=== PATIENT | male | born 1990 | race Caucasian/White ===

== ENCOUNTER 2020-09-03 08:29 | Outpatient (REF) | payer BC, SELFPAY | END 2020-09-03 08:30 | disposition home or self-care (01) | LOC: HO.LAB 08:29 | PROVIDERS: PCP Internal Medicine; Visit Provider Internal Medicine | DX: Z20.822 Contact with and (suspected) exposure to COVID-19 (principal) | CPT/HCPCS: 36415; C9803; U0003 ==

== ENCOUNTER 2021-10-09 11:27 | Emergency (ER) | payer BC, SELFPAY ==
--- NOTE | ~2021-10-09 | US_ITS ---
EXAMINATION: US SCROTUM CLINICAL INFORMATION: Left testicle pain. COMPARISON: None TECHNIQUE: A sonogram of the scrotum was performed assessing saleh-scale appearance and color Doppler flow. Spectral Doppler analysis of the arterial and venous flow were performed in the testes bilaterally. FINDINGS: RIGHT: Right testicle measures 4.5 x 2.5 x 3 cm, volume 18 mL. No focal testicular parenchymal lesions are visualized. Spectral Doppler analysis of the arterial and venous flow is normal in the right testis. Right epididymal head is normal in size. There is a 4 mm epididymal head cyst. No right hydrocele or varicocele is seen. Right epididymal Doppler flow is normal. LEFT: Left testicle measures 4.5 x 2.1 x 3.3 cm, volume 17 mL. No focal testicular parenchymal lesions are visualized. Spectral Doppler analysis of the arterial and venous flow is normal in the left testis. Left epididymal head is normal in size. There is a 2 mm epididymal head cyst. No left hydrocele or varicocele is seen. Left epididymal Doppler flow is normal. US/US scrotum IMPRESSION: Small epididymal head cysts otherwise unremarkable exam.
--- NOTE | ~2021-10-09 | US_ITS ---
EXAMINATION: US SCROTUM CLINICAL INFORMATION: Left testicle pain. COMPARISON: None TECHNIQUE: A sonogram of the scrotum was performed assessing saleh-scale appearance and color Doppler flow. Spectral Doppler analysis of the arterial and venous flow were performed in the testes bilaterally. FINDINGS: RIGHT: Right testicle measures 4.5 x 2.5 x 3 cm, volume 18 mL. No focal testicular parenchymal lesions are visualized. Spectral Doppler analysis of the arterial and venous flow is normal in the right testis. Right epididymal head is normal in size. There is a 4 mm epididymal head cyst. No right hydrocele or varicocele is seen. Right epididymal Doppler flow is normal. LEFT: Left testicle measures 4.5 x 2.1 x 3.3 cm, volume 17 mL. No focal testicular parenchymal lesions are visualized. Spectral Doppler analysis of the arterial and venous flow is normal in the left testis. Left epididymal head is normal in size. There is a 2 mm epididymal head cyst. No left hydrocele or varicocele is seen. Left epididymal Doppler flow is normal. US/US scrotum doppler IMPRESSION: Small epididymal head cysts otherwise unremarkable exam.
[2021-10-09 11:37] VITALS: BP 144/91; PULSE 70; RESP 18; TEMP 36.7; O2SAT 99; BMI 24.9
--- NOTE | 2021-10-09 12:00 | ED.MALEGU ---
HPI - Male Genitourinary General Chief complaint: Urogenital-Male Stated complaint: testicle pain Time Seen by Provider: 10/09/21 11:39 Source: patient Mode of arrival: ambulatory Limitations: no limitations History of Present Illness HPI Narrative: 31 y/o male presenting for 2 weeks of worsening left testicular pain. He was seen by his doctor last week, had a negative UA at that time. He called his doctor today with worsening pain and he ordered 10 days of levaquin and a testicular ultrasound. He reports the pain was more constant today and more severe so he came to the ER for evaluation. He reports the pain is a fullness in his left groin MD Complaint: testicle pain Onset (ago): week(s) (2) Duration: progressively worsening Location: left testicle and left inguinal region Radiation: penis Severity: moderate Severity scale (1-10): 6 Quality: aching and dull Relieving factors: none Exacerbating factors: palpation Associated symptoms: Reports denies other symptoms Related Data Sexually active: No Allergies Allergy/AdvReac Type Severity Reaction Status Date / Time No Known Allergies Allergy Unverified 05/01/20 16:29 [No Known Allergies*] Review of Systems Review of Systems: Constitutional: No Fever, No Chills Cardiovascular: No Chest Pain, No SOB Gastrointestinal: No Nausea, No Vomiting, No Diarrhea, No abdominal Pain Genitourinary: No Dysuria, No Urinary Frequency, No Hematuria, No urethral discharge, No genital lesions Skin: No Skin Lesions, No rash Neuro: No Numbness, No Dizziness, No Headache Psych: +Anxiety/Panic, No Depression Heme/Lymph: No Bruising, No Lymphadenopathy PMFSH Past Medical History Surgical History (Updated 10/09/21 @ 11:38 by Jillian Cruz) S/P appy Social History Social History Advance Directives: No Advance Directives Information Provided: Yes Physical Exam Vital Signs: Vital Signs: Last Vital Signs Temp 98.0 F 10/09/21 11:37 Pulse 70 10/09/21 11:37 Resp 18 10/09/21 11:37 BP 144/91 H 10/09/21 11:37 Pulse Ox 99 10/09/21 11:37 BMI result Body Mass Index 24.9 Appearance: Alert. Oriented X3. No acute distress. HEENT: normal external inspection Neck: Normal inspection CVS: Normal heart rate and rhythm. Pulses normal. Respiratory: No respiratory distress. Breath sounds normal. Abdomen: Soft with mild left pelvic/suprapubic tenderness, no rebound or guarding. normal +BS x4 Gentialia: normal external inspection, circumsized penis, no lesions. testes descended with tenderness of the left testicle, no palpable mass. no skin changes. No palpable inguinal hernia Skin: Skin warm and dry. Normal skin color. Normal skin turgor. No rashes. Extremities: normal inspection x4 Neuro: Oriented X 3. grossly normal, nonfocal Course Course Course Narrative: 31-year-old male presenting to the ER with 2 weeks of worsening left-sided testicular pain and left inguinal pain. Exam is benign aside from some left-sided testicular tenderness without any palpable mass. STD testing and testicular ultrasound are ordered. Reevaluation(s) Reevaluation #1: Urinalysis is negative. GC chlamydia sent, patient is not concerned about STDs. Scrotal ultrasound is showing very small epididymal head cysts, unlikely to be the source of his pain. No evidence of testicular torsion or epididymitis. His doctor had already prescribed him levofloxacin 10 days, to be started today. He will empirically start taking this. He will follow-up with his primary care doctor early next week. Will also plan to refer to urology for further evaluation. Instructed to come back to the ER if he has acutely worsening pain as torsion is still a possibility. Stable for discharge home with outpatient follow-up. MDM - Male Genitourinary Differential Diagnosis Differential diagnosis: Likely urinary tract infection, urethritis, epididymitis, genital herpes simplex, prostatitis, acute retention of urine and inguinal hernia Medical Records Attestation: I reviewed the patient's medical records. Lab Data Attestation: I reviewed the patient's lab results. Labs: Lab Results 10/09/21 Range/Units 12:13 Urine Color YELLOW Urine Appearance CLEAR Urine pH 6.0 (5.0-8.0) Ur Specific Patterson 1.020 (1.005-1.025) Urine Protein NEG (NEG-TRACE) MG/DL Urine Glucose (UA) NEG (NEG) MG/DL Urine Ketones NEG (NEG) MG/DL Urine Blood NEG (NEG) Urine Nitrite NEG (NEG) Ur Leukocyte Esterase NEG (NEG) Critical Care Time Critical Care Time Critical Care Time: No Discharge Plan Discharge Clinical Impression: Left testicular pain Patient Disposition: Home, Self-Care Instructions: Testicle Pain (ED) Additional Instructions: Your testicular ultrasound showed Small epididymal head cysts otherwise unremarkable exam. Your urinalysis was normal. Recommend trial of the antibiotic prescribed by your doctor. Also recommend follow up with Urology for further evaluation if symptoms persist. If you have worsening pain or develop any new or worsening symptoms come back to the ER for further evaluation. Referrals: Ankit Villalobos MD [Physician] - 1 week (left testicular pain, UA normal, US normal) Interventions: ED Discharge Assessment Last Done: 10/09/21 13:37
[2021-10-09 12:20] LABS: Appearance Urine CLEAR; Color Urine YELLOW; Glucose Urine UA NEG (NEG); Leukocyte Esterase Urine NEG (NEG); Nitrite Urine NEG (NEG); Urine Blood NEG (NEG); Urine Ketones NEG (NEG); Urine Protein NEG (NEG-TRACE)
[2021-10-09 14:08] LABS: CT PCR NOT DETECTED (Not Detect.); NG PCR NOT DETECTED (Not Detect.)
== END 2021-10-09 13:37 | disposition home or self-care (01) ==
PROVIDERS: Physician Assistant; Emergency Provider Emergency Medicine; PCP Internal Medicine
DX: N50.3 Cyst of epididymis (principal); N50.812 Left testicular pain; R10.2 Pelvic and perineal pain; Z20.822 Contact with and (suspected) exposure to COVID-19; Z79.899 Other long term (current) drug therapy
CPT/HCPCS: 76870; 81003; 87491; 87591; 93975; 99283; 99284

== ENCOUNTER 2022-03-23 11:23 | Outpatient (REF) | payer BC, SELFPAY ==
[2022-03-23 13:15] LABS: CT PCR DETECTED (Not Detect.); NG PCR NOT DETECTED (Not Detect.)
== END 2022-03-23 11:24 | disposition home or self-care (01) ==
LOC: HO.LNP 11:23
PROVIDERS: Visit Provider Internal Medicine
DX: Z11.3 Encounter for screening for infections with a predominantly sexual mode of transmission (principal)
CPT/HCPCS: 87491; 87591

== ENCOUNTER 2025-02-20 07:59 | Outpatient (REF) | payer BC, SELFPAY ==
[2025-02-20 11:23] LABS: HBsAGNum1 0.38 S/CO (0.00-0.99); HIV Num 1 0.05 S/CO (0.00-0.99); Hepatitis B Surface Antigen Negative (Negative); Syphilis Screen Nonreactive (Nonreactive); ~HepC Num1 0.11 S/CO (0.00-0.79); ~Hepatitis C Antibody Nonreactive (Nonreactive)
[2025-02-20 12:44] LABS: CT PCR Urine NOT DETECTED (Not Detect.); NG PCR Urine NOT DETECTED (Not Detect.)
== END 2025-02-20 08:00 | disposition home or self-care (01) ==
LOC: HO.HMGCLDS 07:59
PROVIDERS: PCP Internal Medicine; Visit Provider Physician Assistant
DX: Z11.3 Encounter for screening for infections with a predominantly sexual mode of transmission (principal); Z11.4 Encounter for screening for human immunodeficiency virus [HIV]; Z11.59 Encounter for screening for other viral diseases
CPT/HCPCS: 36415; 86780; 86803; 87340; 87389; 87491; 87591

== ENCOUNTER 2025-02-20 07:59 | Outpatient (AMB) | payer BC, SELFPAY ==
--- OUTSIDE RECORDS SUMMARY | 2025-02-20 08:01 | XMS_ITS | Clinical Summary ---
Author Organization [facility] Address [address] [place] [address] Care Team Providers Care Asphalt Mixer Name Role Phone Flako Beck Primary Care Provider [phone] Allergies No known active allergies Medications No known medications Social History Tobacco Use Types Packs/Day Years Used Date Smoking Tobacco: Never Smokeless Tobacco: Never Tobacco Cessation:Counseling Given: Not Answered Alcohol Use Standard Drinks/Week Comments Defer 0 (1 standard drink = 0.6 oz pur e alcohol) Sex and Gender Information Value Date Recorded Sex Assigned at Male 11/04/2024 10:17 AM EDT Legal Sex Male 10:14 AM EDT Gender Identity Not on file Sexual Orientation Not on file Last Filed Vital Signs Vital Sign Reading Time Taken Comments Blood Pressure 147/86 11/04/2024 11:53 AM EDT Pulse 57 11/04/2024 11:53 AM EDT Temperature 36.3 C (97.3 F) 11/04/2024 11:53 AM EDT Respiratory Rate - - Oxygen Saturation 99% 11/04/2024 11:53 AM EDT Inhaled Oxygen Concentration - - Weight - - Height - - Body Mass Index - - Plan of Treatment Health Maintenance Due Date Last Done Comments HIV Screening 1991 Pneumococcal Vaccine: Pediat federico (0-5 Years) and At-Risk Patients (6-50 Years) (2 of 2 - PCV) 07/25/2021 07/25/2020 COVID-19 Vaccine ( - 2023-2 5 season) 2024 12/03/2020, 11/12/2020 DTaP,Tdap,and Td Vaccines (9 - Td or Tdap) 07/03/2024 07/03/2014, 07/03/2014, 07/24/2008, Additional history exists Alcohol/Substance Use Screening 08/15/2024 Depression Screening and Follow-Up 08/15/2024 Social Drivers of Health Mam[place] ual Screening 08/15/2024 Influenza Vaccine (#1) 2025 3, 08/04/2022, 05/03/2020, Additional history exists RSV Vaccine (60+ years old a nd patients) (1 - 1-dose 75+ series) 2066 Varicella Vaccines Completed 07/24/2008, 07/05/2003 Hepatitis B Vaccines Completed 07/03/2014, 04/14/1996, 08/14/1995, Additional history exists Hepatitis C Screening Completed 05/10/2023 Insurance [facility] PPO/EPO Care Teams Asphalt Mixer Relationship Specialty Start Date End Date Flako Beck [address] [place] [id number] PCP - General Internal Medicine 11/04/24
[2025-02-20 08:14] VITALS: BP 124/80; PULSE 68; TEMP 36.7; O2SAT 98; BMI 25.7
--- NOTE | 2025-02-20 08:14 | AM.OFFWIN_ITS ---
Intake Vital Signs 02/20/25 08:14 Height 6 ft 4 in Weight 211 lb BMI 25.7 BP 124/80 Blood Pressure Location Lt brachial Position Sitting Pulse 68 Pulse Source Pulse Oximeter Temp 98.1 F Temp Source Oral Pulse Oximetry (%) 98 Oxygen Delivery Method Room Air Intake Visit Reasons: EP STI testing Intake Note: presents for STI testing Patient Tobacco Use Status: Never used Tobacco Allergies No Known Allergies (No Known Allergies*) Allergy (Verified 02/20/25 08:18) Medication List - Last Reconciled 02/20/25 by Abi Merino PA-C budesonide-formoterol 80-4.5 mcg/actuation 2 puffs PO HPI HPI Comments History of Present Illness Details History - The patient is a 34-year-old male pres enting with a request for routine STD screening. - The patient reports being sexually act deric with multiple partners and seeks screening as a preventative measure. - He denies any symptoms such as abnorma l discharge or fever but mentions generalized itching, which he attributes to a new laundry detergent. Physical Exam General: Cooperative, healthy appearing, comfortable, no acute distress and well developed Orientation: Patient oriented x3 Limitations: No limitations Head: Normal to inspection Ears: Hearing grossly normal bilaterally Nose: Normal External nose present Face and sinus: Normal facial exam Mouth: normal, moist oral mucosa Eyes: Appearance normal, both eyes and all related structures Neck: Normal visual inspection and Yes full ROM Respiratory: Normal respiratory effort and able to speak in complete sentences. Skin: no rashes or lesions noted Neuro: Patient oriented x3 Extremities: moving all extremities normally PFSH Surgical History S/P appy Social History Patient Tobacco Use Status: Never used Tobacco Physical Exam Vital Signs: Last Vital Signs Temp 98.1 F 02/20/25 08:14 Pulse 68 02/20/25 08:14 BP 124/80 02/20/25 08:14 Pulse Ox 98 02/20/25 08:14 Oxygen Delivery Method Room Air 02/20/25 08:14 BMI result Body Mass Index 25.7 Assessment & Plan Assessment & Plan (1) Screening examination for sexually transmitted disease: Code(s): Z11.3 - Encounter for screening for infections with a predominantly sexual mode of transmission Plan: Patient was informed and verbally consented to the use of an ambient scribe for clinic note documentation during this visit 1. Routine Std Screening - Conducted urine test for gonorrhea and chlamydia. - Ordered blood tests for syphilis, HIV, and hepatitis B and C. - Results will be communicated once all tests are completed. Orders: Orders Hepatitis B Surface Antigen Today Z11.3 - Encounter for screening for infections with a predominantly sexual mode of transmission CT NG by PCR Urine Today Z11.3 - Encounter for screening for infections with a predominantly sexual mode of transmission Syphilis Screen Today Z11.3 - Encounter for screening for infections with a predominantly sexual mode of transmission HIV Ab/Ag Today Z11.3 - Encounter for screening for infections with a predominantly sexual mode of transmission Hepatitis C Antibody Today Z11.3 - Encounter for screening for infections with a predominantly sexual mode of transmission Coding Level of Care Code New Pt Level 3 (88457) Diagnoses Screening examination for sexually transmitted disease Z11.3
== END 2025-02-20 08:34 | disposition home or self-care (01) ==
PROVIDERS: PCP Internal Medicine; Visit Provider Physician Assistant
DX: Z11.3 Encounter for screening for infections with a predominantly sexual mode of transmission (principal)

== ENCOUNTER 2025-06-20 12:40 | Outpatient (AMB) | payer BC, SELFPAY ==
--- NOTE | 2025-06-20 12:47 | MHC.PC.OV ---
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 The patient declined all vaccinations. Health Maintenance - The patient is here for a physical exam. - The patient declined all vaccinations. 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 - Exercise: Reports being fairly active and enjoys the outdoors. Review of Systems - Cardiovascular: Denies chest pain. - Respiratory: Denies shortness of breath. - Gastrointestinal: Denies abdominal pain, blood in stool, constipation, or diarrhea. - Psychiatric: Denies suicidal or homicidal ideations. Physical Exam General: Cooperative, healthy appearing, comfortable, no acute distress and well developed Orientation: Patient oriented x3 Limitations: No limitations Head: Normal to inspection Ears: Hearing grossly normal bilaterally Nose: Normal external nose present Face and sinus: Normal facial exam Eyes: Appearance normal, both eyes and all related structures Neck: Normal visual inspection and Yes full ROM Respiratory: Normal respiratory effort and able to speak in complete sentences. Clear to auscultation bilaterally Cardiovascular: Regular rate and rhythm. Normal S1 and S2 GI: Normal to inspection. Soft to palpation and nontender : Testicles without masses/lesions and no hernias appreciated Skin: No rashes or lesions noted Neuro: Patient oriented x3 Extremities: Normal to inspection Results Plan 1. Encounter For General Adult Medical Examination The patient is a new patient presenting for a physical examination. The physical examination was benign. 2. Underimmunization Status The patient has declined all recommended vaccinations. Discussion Notes I noted that the patient is a new patient to me and presented for a physical exam. I informed the patient that the findings of his physical exam were completely benign. The patient declined all vaccinations at this time. Patient Instructions [facility] Surgical History S/P appy Family History Father Hypertension Mother Hypertension Social History Patient Tobacco Use Status: Never used Tobacco e-Cigarette/Vaping Use: Never Used service: No Current occupational status: employed Cognitive needs: No Hearing needs: No Vision needs: No Questionnaire PHQ-9 Over the last 2 weeks, how often have you been bothered by any of the following problems? 1. Little interest or pleasure in doing things: not at all 2. Feeling down, depressed, or hopeless: not at all 3. Trouble falling or staying asleep, or sleeping too much: not at all 4. Feeling tired or having little energy: not at all 5. Poor appetite or overeating: not at all 6. Feeling bad about yourself - or that you are a failure or have let yourself or your family down: not at all 7. Trouble concentrating on things, such as reading the newspaper or watching television: not at all 8. Moving or speaking so slowly that other people could have noticed. Or the opposite - being so fidgety or restless that you have been moving around a lot more than usual: not at all 9. Thoughts that you would be better off or of hurting yourself in some way: not at all Total score: 0 Depression Screening Interpretation: Negative Depression Screening Done: Yes 83869 - PHQ-9 Billing: Yes Source: Developed by Drs. Ravi Berumen, Lucy Houston, Jer Cabello and colleagues, with an educational grace from [employer]. Thrive Questionnaire Date Thrive assessed: 06/20/25 I am a: Patient What is your living situation today?: I have a steady place to live Within the past 12 months, did the food you bought not last and you didn't have the money to get more?: Never true Within the past 12 months, did you worry whether your food would run out before you got money to buy more?: Never true Do you have trouble paying for medicines?: No Do you have trouble getting transportation to medical appointments?: No Do you have trouble paying your heating and electricity bill?: No Do you have trouble taking care of your child, family member or friend?: No Do you have trouble with day-to-day activities such as bathing, preparing meals, shopping, managing finances, etc.?: No Are you currently unemployed and looking for a job?: No Are you interested in more education?: Yes Please select the resources that you would like help with: None Currently or been in a relationship where the following occur: No concerns reported THRIVE Score: 0 AUDIT C Alcohol Use Questionnaire (AUDIT-C) 1. How often do you have a drink containing alcohol?: 2-4 times a month 2. How many drinks containing alcohol do you have on a typical day when you are drinking?: 1 or 2 3. How often do you have six or more drinks on one occasion?: Less than monthly Total Score: 3 Score Reviewed/Action Taken: Yes LUCIO-7 AMB Questionnaire LUCIO-7 Date LUCIO - 7 assessed: 06/20/25 Feeling nervous, anxious, or on edge: 0 = Not at all Not being able to stop or control worryin = Not at all Worrying too much about different things: 0 = Not at all Trouble relaxin = Not at all Being so restless that it is hard to sit still: 0 = Not at all Becoming easily annoyed or irritable: 0 = Not at all Feeling afraid as if something awful might happen: 0 = Not at all Total LUCIO-7 score (0-4 normal; 5-9 mild; 10-14 moderate; 15-21 severe): 0 Source: Developed by Drs. Ravi Berumen, Lucy Houston, Jer Cabello and colleagues, with an educational grace from [employer]. LUCIO-7 Assessment Billing LUCIO-7 Assessment Tool: LUCIO-7 Assessment 70758 Physical exam (Primary Care) Vital Signs: Last Vital Signs Temp 98.2 F 06/20/25 12:48 Pulse 63 06/20/25 12:48 Resp 16 06/20/25 12:48 BP 122/76 06/20/25 12:48 Pulse Ox 99 06/20/25 12:48 Oxygen Delivery Method Room Air 06/20/25 12:48 BMI result Body Mass Index 26.0 Tobacco/Smoking Status: Tobacco use Status Tobacco use date assessed 06/20/25 06/20/25 12:57 Patient Tobacco Use Status Never used Tobacco 06/20/25 12:57 e-Cigarette/Vaping Use Never Used 06/20/25 12:57 PHQ-9: PHQ-9 Score PHQ-9: Total score 0 06/20/25 12:57 Depression Screening Interpretation: Negative Thrive Assessment: Date of Thrive Assessment Date Thrive assessed 06/20/25 06/20/25 12:57 Currently or been in a relationship where the following occur: No concerns reported Coding Level of Care Code Est Pt Prev Care 18-39y(14212) Diagnoses Physical exam Z00. Additional Codes LUCIO-7 Assessment Billing - LUCIO-7 Assessment Tool: LUCIO-7 Assessment 66309 ([id number]) PHQ-9 - 11216 - PHQ-9 Billing: Yes ([id number]) Assessment & Plan Assessment & Plan (1) Physical exam: Code(s): Z00.00 - Encounter for general adult medical examination without abnormal findings Category: Medical Plan . Orders: Orders Complete Blood Count Auto Diff Today Z00.00 - Encounter for general adult medical examination without abnormal findings TSH reflex Free T4 Today Z00.00 - Encounter for general adult medical examination without abnormal findings UA CC w/rflx Micro + Cult Today Z00.00 - Encounter for general adult medical examination without abnormal findings Lipid Panel Today Z00.00 - Encounter for general adult medical examination without abnormal findings Comprehensive Paterson. Panel Fast Today Z00.00 - Encounter for general adult medical examination without abnormal findings
[2025-06-20 12:48] VITALS: BP 122/76; PULSE 63; RESP 16; TEMP 36.8; O2SAT 99; BMI 26.0
--- OUTSIDE RECORDS SUMMARY | 2025-06-20 15:30 | XMS_ITS | Encounter Summary ---
Author Organization [facility] Address [address] [place] [address] Phone Care Team Providers Care Vrt Mechanic Name Role Phone Candy Long MD Primary Care Provider [phone] Encounter Details Date Type Department Care Team (Late st Contact Info) Description 08/25/2011 Documentation EM Family Medicine [address] [place] [address] Family Medicine, Physician [address] [place], [place] [phone] Social History Tobacco Use Types Packs/Day Years Used Date Smoking Tobacco: Never Assessed Sex and Gender Information Value Date Recorded Sex Assigned at Not on file Legal Sex Male 4:53 PM EDT Gender Identity Not on file Sexual Orientation Not on file documented as of this encounter Plan of Treatment Not on file documented as of this encounter Visit Diagnoses Not on filedocumented in this encounter Care Teams Vrt Mechanic Relationship Specialty Start Date End Date Candy Long MD [address] [place] [address] [place] [address] PCP - General 03/25/17 10/07/22 documented as of this encounter
--- OUTSIDE RECORDS SUMMARY | 2025-06-20 15:30 | XMS_ITS | Encounter Summary ---
Author Organization [facility] Address [address] [place] [phone] Phone Care Team Providers Care Obstetrician Gynecologist Name Role Phone Candy Long MD Primary Care Provider [phone] Encounter Details Date Type Department Care Team (Late st Contact Info) Description 05/23/2012 Documentation EM Family Medicine [address] [place] [address] Family Medicine, Physician [address] [place], [place] [phone] Social History Tobacco Use Types Packs/Day Years [...] on filedocumented in this encounter Care Teams Obstetrician Gynecologist Relationship Specialty Start Date End Date Candy Long MD [address] [place] [address] [place] [address] PCP - General 03/25/17 10/07/22 documented as of this encounter
--- OUTSIDE RECORDS SUMMARY | 2025-06-20 15:30 | XMS_ITS | Encounter Summary ---
Author Organization [facility] Address [address] [place] [address] Phone Care Team Providers Care Lodging Manager Name Role Phone Candy Long MD Primary Care Provider [phone] Encounter Details Date Type Department Care Team (Late st Contact Info) Description 03/31/2017 Conversion Encounter [facility] [place] [address] [place] [address] Social History Tobacco Use Types Packs/Day Years Used Date Smoking Tobacco: Every Day Comments:Current every day s moker Sex and Gender Information Value Date Recorded Sex Assigned at Not on file Legal Sex Male 4:53 PM EDT Gender Identity Not on file Sexual Orientation Not on file documented as of this encounter Plan of Treatment Not on file documented as of this encounter Visit Diagnoses Not on filedocumented in this encounter Care Teams Lodging Manager Relationship Specialty Start Date End Date Candy Long MD [address] [place] [address] PCP - General 03/25/17 10/07/22 documented as of this encounter
--- OUTSIDE RECORDS SUMMARY | 2025-06-20 15:30 | XMS_ITS | Clinical Summary ---
Author Organization [facility] Address [address] [place] [address] Phone Care Team Providers Care Coin Counter And Wrapper Name Role Phone Unknown, Unknown Primary Care Provider Noé Womack MD Unavailable Allergies No known active allergies Medications PROAIR HFA 90 mcg/actuation inhaler Inhale 90 mcg into the lungs every 4 (four) hours as needed. 2 puffs. 2 09/04/2018 Active budesonide-formot valentina (SYMBICORT) 80-4.5 mcg/actuation inhaler Inhale 1 puff into the lungs daily. 10.2 Inhaler 12 07/25/2020 Active therapeutic multivitamin tablet Take 1 tablet by mouth daily. Active meclizine (ANTIVERT) 25 mg tabletIndications :Benign paroxysmal positional vertigo, unspecified laterality Take 1 tablet (25 mg total) by mouth 3 (three) times a day as needed. 15 tablet 1 01/17/2023 Active Active Problems Problem Noted Date Diagnosed Date Pelvic floor dysfunction 05/10/2023 Benign paroxysmal positional vertigo 01/17/2023 Assessment & Plan (01/17/2023 4:56 PM EDT): With the absence of etiology for labyrinthitis most likely this is benign positional vertigo and certainly it is not behaving like a central vertigo. If the vertigo comes back would recommend setting up with [employer] here in [place] for Mannie maneuver to be taught officially. For now we will give him some meclizine if he is having issues at night while he is recovering. He did not feel it was necessary to go to physical therapy at this time since the problem seems to be on the way out. Sprain of interphalangeal joint of left little f bambi 01/08/2022 Assessment & Plan (01/08/2022 3:54 PM EDT): Capsule injury PIP left fifth digit suspected. Rule out fracture, obtain x-ray of left fifth digit, referral to [facility] orthopedics. Dysuria 10/06/2021 Assessment & Plan (10/06/2021 3:50 PM EST): Strong suspicion for a STD most likely chlamydia gonorrhea or trichomoniasis. Obtain urinalysis repeat with culture sensitivity. We note previously that the urine was not 100% clean. Also obtain urine for gonorrhea and chlamydia. Tomorrow we will base treatment on the lab results. If the gonorrhea or chlamydia comes back positive will open up a STD panel. History of 2019 novel coronavirus disease (COVID -19) 07/25/2020 Mild persistent asthma without complication 09/15 Elevated blood pressure read ing without diagnosis of hypertension 09/27/2017 Gastroesophageal reflux disease without esophagi tis 09/27/2017 Immunizations Immunization Administration Dates Next Due COVID-19 (Pre-06/06) Pfizer Vaccine, mRNA, PF 11/12/2020 DTP 03/14/1993, 2,1991,10/12 Dtap, 5 Pertussis Antigens 07/14/1996 HPV,quadrivalent 07/03/2014,06/22/2012 Hepatitis B 04/14/1996,08/14/1995,07/14/1995 Hepatitis B Adult 07/03/2014 Hib,PRP-T 10/12/1992, 2,1991,10/12 INFLUENZA, SPLIT VIRUS, TRIV ALENT W/ PRESERVATIVE IM 06/03/2014,07/24/2008 IPV 07/14/1996, 3,1991,10/12 Influenza Quadrivalent MDCK Preservative Free IM 05/28/2019 Influenza Quadrivalent Prese rvative Free IM 05/10/2023,08/04/2022,04/29/2020 Influenza Split (Incl. Purif ied Surface Antigen) 05/15/2012,08/12/2011 MMR 07/14/1995,10/12/1992 Meningococcal MCV4, unspecif ied Formulation 07/03/2014 Meningococcal MCV4P 03/20/2007 Pneumococcal polysaccharide PPSV23 07/25/2020 Td (adult),2 Lf Tetanus Toxo id, PF, Adsorbed 07/03/2014,09/09/2003 Tdap 07/03/2014,07/24/2008 Varicella 07/24/2008,07/05/2003 Family History Medical History Relation Comments COPD Father Diabetes Father Hypertension Father CV disease Maternal Grandfather Hypertension Mother Guillain-Fernandes syndrome Paternal Grandfather No Known Problems Sister Relation Status Comments Father Alive Maternal Grandfather Mother Alive Paternal Grandfather Sister Alive Social History Tobacco Use Types Packs/Day Years Used Date Smoking Tobacco: Never Smokeless Tobacco: Never Tobacco Cessation:Counseling Given: Not Answered Alcohol Use Standard Drinks/Week Comments Not Currently 0 (1 standard drink = 0.6 oz pur e alcohol) 3-4 drinks, monthly or less Child or Family Care Answer Date Record ed Do you have problems with on e of the following making it difficult for you to work, study, or receive health care? No 08/04/2022 Education Answer Date Recorded Are you interested in more education? Not on ad e 08/07/2024 Are you concerned about learning? Not on file 08/07/2024 No 08/07/2024 No 08/07/2024 Food Answer Date Recorded Within the past 6 months we worried whether our food would run out before we got money to buy more. Never True 08/04/2022 Within the past 6 months the food we bought just didn't last and we didn't have enough money to get more. Never True Residential Stability Answer Date Recor ded What is your housing situation today? I have maddy sing 08/04/2022 How many times have you move d in the past 12 months? Zero (I did not move) 08/04/2022 Paying for Meds Answer Date Recorded Do you have trouble paying for medicines? No 08/04/2022 Paying Utility Bills Answer Date Record ed Do you have trouble paying your heating or elect ricity bill? No 08/04/2022 Transportation Answer Date Recorded Has the lack of transportati on kept you from medical appointments or from getting medications? No 08/04/2022 Unemployment Answer Date Recorded Are you currently unemployed or working on a part-time or temporary basis, and looking for work? No 08/04/2022 Digital Access Answer Date Recorded No 01/10/2023 No 01/10/2023 Reliable internet access at home? Not on file 01/10/2023 Device with a working camera? Not on file Intimate Partner Violence Answer Date R ecorded Denied Basic Needs Not on file 08/04/2022 In the past 12 months have y ou been in a relationship with a person who hurts, threatens, or tries to control you? No 08/04/2022 Worried food would run out Not on file 08/04 In the past 12 months have y ou been in a relationship with a person who hurts, threatens, or tries to control you? No 08/04/2022 Sex and Gender Information Value Date Recorded Sex Assigned at Male 01/08/2022 3:09 PM EDT Legal Sex Male 9:00 PM EDT Gender Identity Male 01/08/2022 3:09 PM EDT Sexual Orientation Straight 01/08/2022 3: 09 PM EDT Last Filed Vital Signs Vital Sign Reading Time Taken Comments Blood Pressure 94/62 05/10/2023 10:30 AM EDT Pulse 70 05/10/2023 10:30 AM EDT Temperature 36.6 C (97.8 F) 05/10/2023 10:30 AM EDT Respiratory Rate 16 01/17/2023 4:22 PM EDT Oxygen Saturation 99% 05/10/2023 10:30 AM EDT Inhaled Oxygen Concentration - - Weight 89.5 kg (197 lb 6.4 oz) 05/10/2023 10:30 AM EDT Height 194 cm (6' 4.38 ) 05/10/2023 10:30 AM EDT Body Mass Index 23.79 05/10/2023 10:30 AM EDT Plan of Treatment Health Maintenance Due Date Last Done Comments PNEUMOCOCCAL VACCINES (0-49 years) (2 of 2 - PCV) 07/25/2021 07/25/2020 DEPRESSION SCREENING 08/04/2023 08/04/2022 Adult Td,Tdap Booster 07/03/2024 07/03/2014 , 07/03/2014, 07/24/2008, Additional history exists INFLUENZA VACCINE (#1) 2025 , 08/04/2022, 04/29/2020, Additional history exists COVID-19 VACCINE ( season) 2025 12/03/2020, 11/12/2020 HIB VACCINES Completed 10/12/1992, 01/15, 1991, Additional history exists MENINGOCOCCAL VACCINES (ACWY) Aged Out 07/03/2014, 03/20/2007 No longer eligibl e based on patient's age to complete this topic HEPATITIS C SCREENING Completed 05/10/2023 , 05/10/2023, 03/24/2017 HIV ONE-TIME SCREENING (18-65 YEARS) Completed 05/10/2023, 03/24/2017 SMOKING STATUS SCREENING (Once After 26 Yrs) Completed 05/10/2023 HEPATITIS A VACCINES Aged Out No long er eligible based on patient's age to complete this topic MENINGOCOCCAL VACCINES (B) Aged Out N o longer eligible based on patient's age to complete this topic Medical Devices Not on file Procedures Procedure Name Priority Date/Time Associated Diagnosis Comments HEPATITIS C ANTIBODY, QUALITATIVE Routine 05/10/2023 10:23 AM EDT Screen for STD (sexually transmitted disease) OUTSIDE HIV Routine 03/24/2017 from Last 3 Months or Most Recently Relevant to Health Maintenance Results * Hepatitis C antibody, qualitative (05/10/2023 10:23 AM EDT) HCV NON-REACTIV E NON-REACTI VE [facility] Blood 05/10/2023 10:2 3 AM EDT 05/10/2023 10:27 AM EDT us Kori Romero NP LAB BLOOD BKR ORDERABLES Final Result [address] [address] * OUTSIDE HIV TEST (03/24/2017) HIV - External Neg us Historical Provider LAB BLOOD ORDERABLES Maria Isabel l Result from Last 3 Months or Most Recently Relevant to Health Maintenance Insurance PPO EPO PPO EPO PPO EPO PPO EPO PPO EPO PPO EPO PPO EPO PPO EPO PPO EPO Care Teams Coin Counter And Wrapper Relationship Specialty Start Date End Date Unknown, Unknown, MD PCP - General 11/14/23 Noé Perera MD [address] [place] [address] [email or web address] Insurance Assigned Provider 11/19/23 Additional Source Comments The information contained in this document represents components of the legal health record. It is not the complete legal health record.[facility]
--- OUTSIDE RECORDS SUMMARY | 2025-06-20 15:30 | XMS_ITS | Encounter Summary ---
Author Organization [facility] Address [address] [place] [address] Phone Care Team Providers Care Bag Inspector Name Role Phone Candy Long MD Primary Care Provider [phone] Encounter Details Date Type Department Care Team (Late st Contact Info) Description 05/16/2012 Documentation EM Family [facility] [address] [place] [address] Family Medicine, Physician [address] [place], [place] [phone] Social History Tobacco Use Types Packs/Day Years [...] on filedocumented in this encounter Care Teams Bag Inspector Relationship Specialty Start Date End Date Candy Long MD [address] [place] [address] [place] [address] PCP - General 03/25/17 10/07/22 documented as of this encounter
--- OUTSIDE RECORDS SUMMARY | 2025-06-20 15:30 | XMS_ITS | Clinical Summary ---
Author Organization [facility] Address [address] [place] [address] Care Team Providers Care Net Maker Name Role Phone Flako Beck Primary Care Provider [phone] Allergies No known active allergies Medications No [...] (2 of 2 - PCV) 07/25/2021 07/25/2020 DTaP,Tdap,and Td Vaccines (9 - Td or Tdap) 07/03/2024 07/03/2014, 07/03/2014, 07/24/2008, Additional history exists Alcohol/Substance Use Screening 08/15/2024 Depression Screening and Follow-Up 08/15/2024 Social Drivers of Health Mamta ual Screening 08/15/2024 COVID-19 Vaccine (3 - 2024-2 6 season) 2025 12/03/2020, 11/12/2020 Influenza Vaccine (#1) 2025 , 08/04/2022, 05/03/2020, Additional history exists Varicella Vaccines Completed 07/24/2008, 07/05/2003 Hepatitis B Vaccines Completed 07/03/2014, 04/14/1996, 08/14/1995, Additional history exists Hepatitis C Screening Completed 05/10/2023 Insurance [facility] PPO/EPO Care Teams Net Maker Relationship Specialty Start Date End Date Flako Beck [address] [place] [address] PCP - General Internal Medicine 11/04/24
--- OUTSIDE RECORDS SUMMARY | 2025-06-20 15:30 | XMS_ITS | Encounter Summary ---
Author Organization [facility] Address [address] [place] [address] Phone Care Team Providers Care Hog Scraper Name Role Phone Candy Long MD Primary Care Provider Encounter Details Date Type Department Care Team (Late st Contact Info) Description 01/08/2014 Documentation EM Family Medicine [address] [place] [address] Family Medicine, Physician [address] [place], [place] [id number] Social History Tobacco Use Types Packs/Day Years [...] on filedocumented in this encounter Care Teams Hog Scraper Relationship Specialty Start Date End Date Candy Long MD [address] [place] [address] [place] [address] PCP - General 03/25/17 10/07/22 documented as of this encounter
--- OUTSIDE RECORDS SUMMARY | 2025-06-20 15:30 | XMS_ITS | Clinical Summary ---
Author Organization [facility] Address [address] [place] [address] Phone Care Team Providers Care Tool Grinder Operator Surface Name Role Phone Unavailable Primary Care Provider Unavailabl e Immunizations Immunization Administration Dates Next Due DTP 03/14/1993, 2,1991,10/12 DTaP 5 07/14/1996 HPV, Quadrivalent 06/22/2012 Hep B, ped/adol 04/14/1996,08/14/1995,07/14/1995 Hib (PRP-T) 10/12/1992, 2,1991,10/12 IPV 07/14/1996, 3,1991,10/12 Influenza Split 05/15/2012,08/12/2011 Influenza, injectable, trivalent 07/24/2008 MMR 07/14/1995,10/12/1992 Meningococcal Conj (Menactra) MCV4P 03/20/2007 Td (adult) (MBL), 2 Lf tetan us toxoid, PF, adsorbed 09/09/2003 Tdap 07/24/2008 Varicella 07/24/2008,07/05/2003 Family History Relation Name Status Comments Father Alive Father: Asthma / Hypothyroid Mother Alive Mother: HTN Sister Alive Sister: Alive a nd well Social History Tobacco Use Types Packs/Day Years Used Date Smoking Tobacco: Every Day Comments:Current every day s katie Sex and Gender Information Value Date Recorded Sex Assigned at Not on file Legal Sex Male 4:53 PM EDT Gender Identity Not on file Sexual Orientation Not on file Last Filed Vital Signs Vital Sign Reading Time Taken Comments Blood Pressure 128/79 05/11/2014 12:00 AM EDT Pulse 88 05/11/2014 12:00 AM EDT Temperature 36.7 C (98 F) 05/11/2014 12:00 AM EDT Respiratory Rate - - Oxygen Saturation 95% 10/29/2011 12:00 AM EDT Inhaled Oxygen Concentration - - Weight 77.2 kg (170 lb 3.2 oz) 05/11/2014 12:00 AM EDT Height 191.5 cm (6' 3.4 ) 05/11/2014 12:00 AM ED T Body Mass Index 21.05 05/11/2014 12:00 AM EDT Plan of Treatment Health Maintenance Due Date Last Done Comments HPV Vaccines (2 - Male 3-dose series) 07/20/2012 06/22/2012 DTaP,Tdap,and Td Vaccines (7 - Td or Tdap) 07/24/2018 07/24/2008, 09/09/2003, 07/14/1996, Additional history exists Influenza Vaccines (#1) 2025 05/15/20, 08/12/2011, 07/24/2008 COVID-19 Vaccine ( season) 2025 HIB Vaccines Completed 10/12/1992, 01/15, 1991, Additional history exists MMR Vaccines Completed 07/14/1995, 10/12/1992 Hepatitis B Vaccines Completed 04/14/1996, 08/14/1995, 07/14/1995 IPV Vaccines Completed 07/14/1996, 02/14, 1991, Additional history exists Meningococcal Vaccine Aged Out 03/20/2007 No sahra nic eligible based on patient's age to complete this topic Varicella Vaccines Completed 07/24/2008, 07/05/2003 Hepatitis A Vaccines Aged Out No long er eligible based on patient's age to complete this topic Men B Vaccine Aged Out No longer elig ible based on patient's age to complete this topic Pneumococcal Vaccine Aged Out No long er eligible based on patient's age to complete this topic
== END 2025-06-20 14:31 | disposition home or self-care (01) ==
LOC: HO.HMCC 12:41
PROVIDERS: PCP Internal Medicine; Visit Provider Nurse Practitioner Family
DX: Z00.00 Encounter for general adult medical examination without abnormal findings (principal)

== ENCOUNTER → 2025-06-20 12:40 | Outpatient (BNVA) | payer BC, SELFPAY | PROVIDERS: PCP Internal Medicine; Visit Provider Nurse Practitioner Family | DX: Z00.00 Encounter for general adult medical examination without abnormal findings (principal) | CPT/HCPCS: 96127 ==

== ENCOUNTER 2025-06-28 07:32 | Outpatient (REF) | payer BC, SELFPAY ==
--- OUTSIDE RECORDS SUMMARY | 2025-06-28 07:34 | XMS_ITS | Clinical Summary ---
Author Organization [facility] Address [address] [place] [address] Phone Care Team Providers Care Director Specialty Name Role Phone Unknown, Unknown Primary Care [...] recommend setting up with [employer] here in [place] for Mannie maneuver to be taught officially. [...] x-ray of left fifth digit, referral to [facility] orthopedics. Dysuria 10/06/2021 Assessment & Plan (10/06/2021 [...] Completed 10/12/1992, 01/15, 1991, Additional history exists IPV VACCINES Completed 07/14/1996, 02/14, 1991, Additional history exists MENINGOCOCCAL VACCINES (ACWY) [...] AM EDT) HCV NON-REACTIV E NON-REACTI VE [facility] Blood 05/10/2023 10:2 3 AM EDT 05/10/2023 10:27 AM EDT us Kori Romero NP LAB BLOOD BKR ORDERABLES Final Result Performing Organization Address City/State/[facility] Co de Phone Number [facility] [address] [place] [address] * OUTSIDE HIV TEST (03/24/2017) HIV - External Neg us Historical Provider LAB BLOOD ORDERABLES Maria Isabel l Result from Last 3 Months or Most Recently Relevant to Health Maintenance Insurance PPO EPO PPO EPO PPO EPO PPO EPO PPO EPO PPO EPO PPO EPO PPO EPO PPO EPO Care Teams Director Specialty Relationship Specialty Start Date End Date Unknown, Unknown, MD PCP - General 11/14/23 Noé Perera MD [address] [place] [address] juan [email or web address] Insurance Assigned Provider 11/19/23 Additional Source Comments The information contained in this document represents components of the legal health record. It is not the complete legal health record.[facility]
--- OUTSIDE RECORDS SUMMARY | 2025-06-28 07:34 | XMS_ITS | Clinical Summary ---
Author Organization [facility] Address [address] [place] [address] Care Team Providers Care Prosthodontist/Owner Name Role Phone Flako Beck Primary Care Provider [phone] Allergies No known active allergies Medications No [...] exists Hepatitis C Screening Completed 05/10/2023 Insurance [facility] PPO/EPO Care Teams Prosthodontist/Owner Relationship Specialty Start Date End Date Flako Beck [address] [place] [address] PCP - General Internal Medicine 11/04/24
--- OUTSIDE RECORDS SUMMARY | 2025-06-28 07:34 | XMS_ITS | Clinical Summary ---
Author Organization [facility] Address [address] [place] [address] Phone Care Team Providers Care Precision Agriculture Specialist Name Role Phone Unavailable Primary Care Provider [...]
--- OUTSIDE RECORDS SUMMARY | 2025-06-28 07:34 | XMS_ITS | Encounter Summary ---
Author Organization [facility] Address [address] [place] [address] Phone Care Team Providers Care Central Sterile Tech Name Role Phone Candy Long MD Primary Care Provider [phone] Encounter Details Date Type Department Care Team (Late st Contact Info) Description 05/16/2012 Documentation EM Family Medicine [address] [place] [address] Family Medicine, Physician [address] [place], [place] [phone] Social History Tobacco Use Types Packs/Day Years [...] on filedocumented in this encounter Care Teams Central Sterile Tech Relationship Specialty Start Date End Date Candy Long MD [address] [place] [address] [place] [address] PCP - General 03/25/17 10/07/22 documented as of this encounter
--- OUTSIDE RECORDS SUMMARY | 2025-06-28 07:34 | XMS_ITS | Encounter Summary ---
Author Organization [facility] Address [address] [place] [address] Phone Care Team Providers Care Insurance Sales Agent Name Role Phone Candy Long MD Primary Care Provider [phone] Encounter Details Date Type Department Care Team (Late st Contact Info) Description 03/31/2017 Conversion Encounter [facility] [place] [address] [place] [address] Social History Tobacco Use Types Packs/Day Years [...] on filedocumented in this encounter Care Teams Insurance Sales Agent Relationship Specialty Start Date End Date Candy Long MD [address] [place] [address] PCP - General 03/25/17 10/07/22 documented as of this encounter
--- OUTSIDE RECORDS SUMMARY | 2025-06-28 07:34 | XMS_ITS | Encounter Summary ---
Author Organization [facility] Address [address] [place] [address] Phone Care Team Providers Care Senior Windows Administrator Name Role Phone Candy Long MD Primary Care Provider [phone] Encounter Details Date Type Department Care Team (Late st Contact Info) Description 05/23/2012 Documentation EM Family Medicine [address] [place] [address] Family Medicine, Physician [address] [place], [place] [phone] Social History Tobacco Use Types Packs/Day Years [...] on filedocumented in this encounter Care Teams Senior Windows Administrator Relationship Specialty Start Date End Date Candy Long MD [address] [place] [address] [place] [address] PCP - General 03/25/17 10/07/22 documented as of this encounter
--- OUTSIDE RECORDS SUMMARY | 2025-06-28 07:34 | XMS_ITS | Encounter Summary ---
Author Organization [facility] Address [address] [place] [address] Phone Care Team Providers Care Independent Producer Name Role Phone Candy Long MD Primary Care Provider [phone] Encounter Details Date Type Department Care Team (Late st Contact Info) Description 01/08/2014 Documentation EM Family Medicine [address] [place] [address] Family Medicine, Physician [address] [place], [place] [phone] Social History Tobacco Use Types Packs/Day Years [...] on filedocumented in this encounter Care Teams Independent Producer Relationship Specialty Start Date End Date Candy Long MD [address] [place] [address] [place] [address] PCP - General 03/25/17 10/07/22 documented as of this encounter
--- OUTSIDE RECORDS SUMMARY | 2025-06-28 07:34 | XMS_ITS | Encounter Summary ---
Author Organization [facility] Address [address] [place] [address] Phone Care Team Providers Care Director Of Radiology Name Role Phone Candy Long MD Primary Care Provider [phone] Encounter Details Date Type Department Care Team (Late st Contact Info) Description 08/25/2011 Documentation EM Family Medicine [address] [place] [address] Family Medicine, Physician [address] [place], [place] [phone] Social History Tobacco Use Types Packs/Day Years [...] on filedocumented in this encounter Care Teams Director Of Radiology Relationship Specialty Start Date End Date Candy Long MD [address] [place] [address] [place] [address] PCP - General 03/25/17 10/07/22 documented as of this encounter
[2025-06-28 10:16] LABS: MANUAL DIFF FLAG NO
[2025-06-28 10:40] LABS: Hematocrit 47.6 % (42.0-52.0); Hemoglobin 16.6 g/dl (14.0-18.0); Imm Gran Abs Auto 0.01 X10*3/uL (0.00-0.03); Imm Gran Pct Auto 0.2 % (0.0-0.4); Lymphocytes Absolute Auto 1.9 X10*3/uL (1.2-4.9); Mean Corpuscular HGB Conc 34.9 g/dl (31.0-36.0); Mean Corpuscular Hemoglobin 31.1 pg (27.0-33.0); Mean Corpuscular Volume 89.1 fL (80.0-98.0); NRBC Abs Auto 0.000 X10*3/uL (0.0-0.012); NRBC Pct Auto 0.0 /100WBC (0.0-0.2); Platelet Count 216 X10*3/uL (160-400); Red Blood Count 5.34 X10*6/uL (4.60-5.80); White Blood Count 4.1 X10*3/uL (4.8-10.8)
[2025-06-28 11:10] LABS: Alanine Aminotransferase 68 U/L (0-40); Albumin Level 4.9 g/dL (3.5-5.0); Alkaline Phosphatase 50 U/L (39-117); Anion Gap 11 (12-20); Aspartate Amino Transferase 35 U/L (5-37); Blood Urea Nitrogen 13 mg/dL (9-16); Calcium 9.6 mg/dL (8.4-10.2); Carbon Dioxide 29 mmol/L (22-29); Chloride 107 mmol/L (96-108); Cholesterol 163 mg/dL (<200); Estimated Glomerular Filt Rate > 60; HDL Cholesterol 53 mg/dL (>40); Potassium 4.1 mmol/L (3.3-5.1); Sodium 143 mmol/L (135-145); Total Protein 7.4 g/dL (6.5-8.0); Triglycerides 84 mg/dL (<150)
[2025-06-28 11:36] LABS: Appearance Urine Clear; Glucose Urine UA Negative (Negative); PH 6.0 (5.0-9.0); Specific Gravity - Urine 1.025 (1.005-1.025)
== END 2025-06-28 07:33 | disposition home or self-care (01) ==
LOC: HO.HMGCLDS 07:32
PROVIDERS: PCP Nurse Practitioner Family; Visit Provider Nurse Practitioner Family
DX: Z00.00 Encounter for general adult medical examination without abnormal findings (principal); Z13.29 Encounter for screening for other suspected endocrine disorder
CPT/HCPCS: 36415; 80053; 80061; 81003; 84443; 85025

== ENCOUNTER 2025-07-30 13:11 | Outpatient (REF) | payer BC, SELFPAY ==
[2025-07-30 16:15] LABS: MANUAL DIFF FLAG NO
[2025-07-30 16:20] LABS: Hematocrit 43.9 % (42.0-52.0); Hemoglobin 15.2 g/dl (14.0-18.0); Imm Gran Abs Auto 0.02 X10*3/uL (0.00-0.03); Imm Gran Pct Auto 0.4 % (0.0-0.4); Lymphocytes Absolute Auto 2.2 X10*3/uL (1.2-4.9); Mean Corpuscular HGB Conc 34.6 g/dl (31.0-36.0); Mean Corpuscular Hemoglobin 31.3 pg (27.0-33.0); Mean Corpuscular Volume 90.5 fL (80.0-98.0); NRBC Abs Auto 0.000 X10*3/uL (0.0-0.012); NRBC Pct Auto 0.0 /100WBC (0.0-0.2); Platelet Count 209 X10*3/uL (160-400); Red Blood Count 4.85 X10*6/uL (4.60-5.80); White Blood Count 4.6 X10*3/uL (4.8-10.8)
[2025-07-30 16:59] LABS: Alanine Aminotransferase 48 U/L (0-40); Albumin Level 4.7 g/dL (3.5-5.0); Alkaline Phosphatase 52 U/L (39-117); Anion Gap 11 (12-20); Aspartate Amino Transferase 26 U/L (5-37); Blood Urea Nitrogen 14 mg/dL (9-16); Calcium 9.7 mg/dL (8.4-10.2); Carbon Dioxide 28 mmol/L (22-29); Chloride 105 mmol/L (96-108); Estimated Glomerular Filt Rate > 60; Potassium 3.8 mmol/L (3.3-5.1); Sodium 140 mmol/L (135-145); Total Protein 7.1 g/dL (6.5-8.0)
--- OUTSIDE RECORDS SUMMARY | 2025-07-30 17:14 | XMS_ITS | Clinical Summary ---
Author Organization [facility] Address [address] [place] [address] Care Team Providers Care Computer Tech Name Role Phone Flako Beck Primary Care Provider [phone] Allergies No known active allergies Medications No [...] 2025 3, 08/04/2022, 05/03/2020, Additional history exists COVID-19 Vaccine (3 2024-2 6 season) 2025 12/03/2020, 11/12/2020 Varicella Vaccines Completed 07/24/2008, 07/05/2003 Hepatitis B Vaccines Completed 07/03/2014, 04/14/1996, 08/14/1995, Additional history exists Hepatitis C Screening Completed 05/10/2023 Insurance [facility] PPO/EPO Care Teams Computer Tech Relationship Specialty Start Date End Date Flako Beck [address] [place] [address] PCP - General Internal Medicine 11/04/24
--- OUTSIDE RECORDS SUMMARY | 2025-07-30 17:14 | XMS_ITS | Encounter Summary ---
Author Organization [facility] Address [address] [place] [address] Phone Care Team Providers Care Private Eye Name Role Phone Candy Long MD Primary Care Provider [phone] Encounter Details Date Type Department Care Team (Late st Contact Info) Description 03/31/2017 Conversion Encounter [facility] [place] [address] [place] [address] Social History Tobacco Use Types Packs/Day Years [...] on filedocumented in this encounter Care Teams Private Eye Relationship Specialty Start Date End Date Candy Logn MD [address] [place] [address] PCP - General 03/25/17 10/07/22 documented as of this encounter
--- OUTSIDE RECORDS SUMMARY | 2025-07-30 17:14 | XMS_ITS | Clinical Summary ---
Author Organization [facility] Address [address] [place] [phone] Phone Care Team Providers Care Agriculture Scientist Name Role Phone Unknown, Unknown Primary Care [...] recommend setting up with [employer] here in [place] for Mannie maneuver to be taught officially. [...] x-ray of left fifth digit, referral to [facility] orthopedics. Dysuria 10/06/2021 Assessment & Plan [...] AM EDT) HCV NON-REACTIV E NON-REACTI VE [facility] Blood 05/10/2023 10:2 3 AM EDT 05/10/2023 10:27 AM EDT us Kori Romero NP LAB BLOOD BKR ORDERABLES Final Result [address] [id number] * OUTSIDE HIV TEST (03/24/2017) HIV - External Neg us Historical Provider LAB BLOOD ORDERABLES Maria Isabel l Result from Last 3 Months or Most Recently Relevant to Health Maintenance Insurance PPO EPO PPO EPO PPO EPO PPO EPO PPO EPO PPO EPO PPO EPO PPO EPO PPO EPO Care Teams Agriculture Scientist Relationship Specialty Start Date End Date Unknown, Unknown, MD PCP - General 11/14/23 Noé Perera MD [address] [place] [address] [email or web address] Insurance Assigned Provider 11/19/23 Additional Source Comments The information contained in this document represents components of the legal health record. It is not the complete legal health record.[facility]
--- OUTSIDE RECORDS SUMMARY | 2025-07-30 17:14 | XMS_ITS | Clinical Summary ---
Author Organization [facility] Address [address] [place] [phone] Phone Care Team Providers Care Water Hauler Name Role Phone Unavailable Primary Care Provider [...]
--- OUTSIDE RECORDS SUMMARY | 2025-07-30 17:14 | XMS_ITS | Encounter Summary ---
Author Organization [facility] Address [address] [place] [id number] Phone Care Team Providers Care Finisher Wallboard And Plasterboard Name Role Phone Candy oLng MD Primary Care Provider [phone] Encounter Details Date Type Department Care Team (Late st Contact Info) Description 05/16/2012 Documentation EM Family Medicine [address] [place] [address] Family Medicine, Physician [address] [place], [place] [id number] Social History Tobacco Use Types Packs/Day Years [...] on filedocumented in this encounter Care Teams Finisher Wallboard And Plasterboard Relationship Specialty Start Date End Date Candy Long MD [address] [place] [address] [place] [address] PCP - General 03/25/17 10/07/22 documented as of this encounter
--- OUTSIDE RECORDS SUMMARY | 2025-07-30 17:14 | XMS_ITS | Encounter Summary ---
Author Organization [facility] Address [address] [place] [address] Phone Care Team Providers Care Rheumatologist Name Role Phone Candy Long MD Primary Care Provider [phone] Encounter Details Date Type Department Care Team (Late st Contact Info) Description 01/08/2014 Documentation EM Family Medicine [address] [place] [address] Family Medicine, Physician [address] [place], [place] [phone] Social History Tobacco Use Types Packs/Day Years [...] on filedocumented in this encounter Care Teams Rheumatologist Relationship Specialty Start Date End Date Candy Long MD [address] [place] [address] [place] [phone] PCP - General 03/25/17 10/07/22 documented as of this encounter
--- OUTSIDE RECORDS SUMMARY | 2025-07-30 17:14 | XMS_ITS | Encounter Summary ---
Author Organization [facility] Address [address] [place] [address] Phone Care Team Providers Care Financial Sales Manager Name Role Phone Candy Long MD Primary Care Provider [phone] Encounter Details Date Type Department Care Team (Late st Contact Info) Description 08/25/2011 Documentation EM Family Medicine [address] [place] [address] Family Medicine, Physician [address] [place], [place] [phone] Social History Tobacco Use Types Packs/Day Years [...] on filedocumented in this encounter Care Teams Financial Sales Manager Relationship Specialty Start Date End Date Candy Long MD [address] [place] [address] [place] [address] PCP - General 03/25/17 10/07/22 documented as of this encounter
--- OUTSIDE RECORDS SUMMARY | 2025-07-30 17:14 | XMS_ITS | Encounter Summary ---
Author Organization [facility] Address [address] [place] [address] Phone Care Team Providers Care Intelligence Specialist Name Role Phone Candy Long MD Primary Care Provider [phone] Encounter Details Date Type Department Care Team (Late st Contact Info) Description 05/23/2012 Documentation EM Family Medicine [address] [place] [address] Family Medicine, Physician [address] [place], [place] [phone] Social History Tobacco Use Types Packs/Day Years [...] on filedocumented in this encounter Care Teams Intelligence Specialist Relationship Specialty Start Date End Date Candy Long MD [address] [place] [address] [place] [id number] PCP - General 03/25/17 10/07/22 documented as of this encounter
[2025-07-31 04:46] LABS: HBS Num1 36.30 mIU/mL (0-7.99); HBc Num1 0.09 S/CO (0.00-0.79); Hepatitis A Antibody IgM 0.24 Index (0-0.79); ~HepC Num1 0.07 S/CO (0.00-0.79); ~Hepatitis A Antibody IgM Nonreactive (Nonreactive); ~Hepatitis B Surface Antibody REACTIVE (Nonreactive); ~Hepatitis C Antibody Nonreactive (Nonreactive)
[2025-08-01 13:25] LABS: HBsAGNum1 0.27 S/CO (0.00-0.99); Hepatitis B Surface Antigen Negative (Negative)
== END 2025-07-30 13:12 | disposition home or self-care (01) ==
LOC: HO.HMGCLDS 13:11
PROVIDERS: PCP Nurse Practitioner Family; Visit Provider Nurse Practitioner Family
DX: Z01.84 Encounter for antibody response examination (principal); R74.8 Abnormal levels of other serum enzymes; D72.819 Decreased white blood cell count, unspecified
CPT/HCPCS: 36415; 80053; 85025; 86015; 86704; 86706; 86709; 86803; 87340